=== PATIENT | male | born 1990 | race Caucasian/White ===

== ENCOUNTER 2019-07-19 10:48 | Emergency (ER) | payer BC, SELFPAY ==
[~2019-07-19 10:48] MED LIST: Iopamidol 370 76% 100 ML VIAL ONE; Iopamidol 370 76% 50 ML VIAL FS ONE
[2019-07-19] MEDS ORDERED: Fentanyl 100 MCG/2 ML VIAL ONE ×2 (11:09→12:41)
[2019-07-19] MEDS ORDERED: Famotidine In NaCl 20 mg/50 ml Premix Bag ONE (11:09)
[2019-07-19 11:47] LABS: ALT (SGPT) 120 U/L (8-55); AST (SGOT) 160 U/L (5-34); Albumin 4.6 g/dL (3.5-5.0); Alkaline Phosphatase 167 U/L (40-150); Anion Gap 17 mmol/L (10-20); BUN (Urea Nitrogen) 12 mg/dL (8.9-20.6); Calc. Creatinine Clearance 0 mL/min (70-130); Calcium 10.5 mg/dL (7.8-10.44); Carbon Dioxide 24 mmol/L (22-29); Chloride 103 mmol/L (98-107); Estimated GFR-MDRD Greater than 90; Globulin 4.1 g/dL (2.4-3.5); Glucose 96 mg/dL (70-105); Lipase 19 U/L (8-78); Potassium 4.5 mmol/L (3.5-5.1); Protein, Total 8.7 g/dL (6.0-8.3); Sodium 139 mmol/L (136-145)
[2019-07-19 11:51] LABS: Band 1 % (5-11); Hemoglobin 15.6 g/dL (14.0-18.0); Lymphocytes 12 % (21-51); MDiff Complete? YES; Mean Corpuscular HGB CONC 32.4 g/dL (32.0-36.0); Mean Corpuscular Hemoglobin 29.4 pg (27.0-31.0); Mean Corpuscular Volume 90.7 fL (78.0-98.0); Mean Platelet Volume 8.7 fL (7.4-10.4); Monocytes 3 % (0-10); Neutrophil 84 % (42-75); Platelet Count 200 thou/uL (130-400); RBC Distribution Width 13.7 % (11.5-14.5); Red Blood Cell (RBC) Count 5.32 mill/uL (4.70-6.10); Toxic Granulation SLIGHT; White Blood Cell (WBC) Count 14.1 thou/uL (4.8-10.8)
[2019-07-19] MEDS ORDERED: Ketorolac Tromethamine 30 MG/ML VIAL ONE (12:41)
[2019-07-19 12:53] LABS: Bilirubin Negative (Negative); Blood, Urine Negative (Negative); Clarity Clear (Clear); Glucose, Urine (Dipstick) Negative (Negative); Leukocyte Negative (Negative); Nitrite Negative (Negative); Protein, Urine (Dipstick) Negative (Neg-Trace)
[2019-07-19] MEDS ORDERED: Lidocaine Viscous Sol 2% 15 ml UD Cup ONE (14:28)
[2019-07-19] MEDS ORDERED: Oxymetazoline HCl 0.05% (30 ML BOT) ONE (14:28)
[2019-07-19] MEDS ORDERED: Benzocaine 20% Spray 60 ML CAN ONE (14:28)
--- NOTE | 2019-07-19 15:09 | CT ---
CT ABDOMEN AND PELVIS WITH CONTRAST: DATE: 07/19/2019. FINDINGS: Spiral CT of the abdomen and pelvis was done for evaluation of severe upper abdominal pain. Axial sl ices were acquired after giving oral and IV contrast. Coronal and sagittal reconstructions were then done. The lung bases are clear, except for some minimal atelectasis and perhaps some scarring in the right lobe posteriorly. The gallbladder is a bit generous in size but the quiles are not thick and there is no stranding aroun d it. A tiny gallstone could be missed by this study, but large ones would be seen. The patient's c ommon bile duct is defined and does not appear dilated. The liver shows no space-occupying disease. Some of the intrahepatic biliary ducts are a little more prominent than usual, but not grossly so. The pancreas, adrenal glands, and spleen are unremarkable. There is a 1.5 cm lucency in the right ki dney and a 1 cm lucency in the left that statistically are most likely to be cysts in this age group. Ultrasound would be needed for confirmation. There appear to be several accessory renal arteries a ssociated with the right kidney. The aorta shows no abnormality of size. No free air or free fluid is present. There is a moderately large amount of ingested oral contrast r emaining in the stomach, even after a 1.5 hour wait. There are filling defects seen in the dependent portion of the stomach that is presumably retained food. A little bit is seen in the duodenal bulb as well. There is no dilation or thickening of the small or large bowel. The appendix was identifie d and appears normal. CT of the pelvis shows no mass, inflammatory change, or free fluid. There are portions of the lumbar spine where the spinal canal seems congenitally small, which could become an issue at a later date. IMPRESSION: 1. Slow emptying of the stomach of contrast compared to the amount of time since it was ingested. T here is also some retained food stuff seen in the stomach, further suggesting poor emptying. Entity such as peptic disease comes to mind as a possibility that could be affecting the gastric outlet. 2. Mild prominence of the gallbladder size without gross gallstones, wall thickening, or inflammator y changes. If symptoms are referable to this area, a HIDA scan might be helpful to test function. 3. Lucencies in each kidney that are presumably small cysts. Ultrasound would be needed for confirm ation. Findings discussed with Dr. Matias at 1405. I feel we are not at the bottom of this patient's problem s yet and further workup is recommended. CODE CR POS: HOME
[2019-07-19 15:26] LABS: HBCM Index 0.06 S/CO (0-0.79); HBSAg Index 0.16 S/CO (0-0.99); Hep A IgM AB Non-Reactive (NonReactive); Hep A IgM S/CO 0.12 S/CO (0-0.79); Hep B Surf Ag Non-Reactive S/CO (NonReactive); Hep C IgG Ab Non-Reactive (NonReactive); Hep C Index 0.09 S/CO (0-0.79); Hepatitis B Core IgM Abs Non-Reactive (NonReactive)
== END 2019-07-19 15:50 | disposition left against medical advice (07) ==
LOC: BURERS 10:48
DX: R10.13 Epigastric pain (principal); F17.220 Nicotine dependence, chewing tobacco, uncomplicated
CPT/HCPCS: 74177; 80053; 80074; 81003; 83690; 85025; 96361; 96365; 96375; 96376; J1885; J3010; Q9967